=== PATIENT | male | born 1955 | race African-American/Black ===

== ENCOUNTER 2020-09-28 10:42 | Emergency (ER) | payer MEDICAID ==
[~2020-09-28] VITALS: Ht 172.7 cm; Wt 72.2 kg
[2020-09-28 11:00] VITALS: BP 155/97
--- NOTE | 2020-09-28 11:10 | PHYS DOC ---
Past Medical History Past Medical History: Alcoholism, Fibromyalgia, Glaucoma (left eye) (HENRIK GERBER SERVICE GIRL) General Adult EDM: Chief Complaint: ALCOHOL INTOXICATION HPI: HPI: Patient is a 65 year old male with history of glaucoma to the left eye and blin d, fibromyalgia, who presents to the ED today via EMS from residence in hotel at the [facility]. Per EMS report this patient is intoxicated and was found laying in the hallway at residence in. Nursing staff was able to reach patient's sister, the sister states patient was laying on the floor at residence in and the family decided to leave him there because they did not want to deal with him and he went back to [place]. 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 (HENRIK GERBER APRN) Review of Systems: Review of Systems: Constitutional: Denies fever or chills. [] Eyes: Denies change in visual acuity. [] HENT: Denies nasal congestion or sore throat. [] Respiratory: Denies cough or shortness of breath. [] Cardiovascular: Denies chest pain or edema. [] GI: Denies abdominal pain, nausea, vomiting, bloody stools or diarrhea. [] : Denies dysuria. [] Musculoskeletal: Denies back pain or joint pain. [] Integument: Denies rash. [] Neurologic: Denies headache, focal weakness or sensory changes. [] Psychiatric: Appears intoxicated (HENRIK GERBER SERVICE GIRL) Heart Score: C/O Chest Pain: N/A Risk Factors: Risk Factors: DM, Current or recent (<one month) smoker, HTN, HLP, family history of CAD, obesity. Risk Scores: Score 0 - 3: 2.5% MACE over next 6 weeks - Discharge Home Score 4 - 6: 20.3% MACE over next 6 weeks - Admit for Clinical Observation Score 7 - 10: 72.7% MACE over next 6 weeks - Early Invasive Strategies (HENRIK GERBER SERVICE GIRL) Allergies: Allergies: Allergies Coded Allergies Type Severity Reaction Last Updated Verified No Known Drug Allergies 09/28/20 No (HENRIK GERBER APRN) Physical Exam: PE: Constitutional: Well developed, well nourished, no acute distress, non-toxic appearance. [] HENT: Normocephalic, atraumatic, bilateral external ears normal, oropharynx moist, no oral exudates, nose normal. [] Eyes: Right eye PERRLA, EOMI, conjunctiva normal, no discharge. 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 [] Cardiovascular:Heart rate regular rhythm, no murmur [] Lungs & Thorax: Bilateral breath sounds clear to auscultation [] Abdomen: Bowel sounds normal, soft, no tenderness, no masses, no pulsatile masses. [] Skin: Warm, dry, no erythema, no rash. [] Back: No tenderness, no CVA tenderness. [] Extremities: No tenderness, no cyanosis, no clubbing, ROM intact, no edema. [] Neurologic: Alert and oriented X 3, normal motor function, normal sensory function, no focal deficits noted. Cranial nerves II through XII intact Psychologic: Appears intoxicated (HENRIK GERBER APRN) EKG: EKG: [] (HENRIK GERBER APRN) Radiology/Procedures: Radiology/Procedures: [] (HENRIK GERBER APRN) Course & Med Decision Making: Course & Med Decision Making Pertinent Labs and Imaging studies reviewed. (See chart for details) This is a 65-year-old male patient presented to the ED today to be evaluated. Patient was found laying down on the floor intoxicated at residence in. Patient's sister was called, she states patient was intoxicated and laying on the floor. They did not want to deal with him so they left him laying on the floor and went back to [place] with the rest of the family. [facility] team came and talked to patient Family came and picked him up (HENRIK GERBER SERVICE GIRL) Course & Med Decision Making Pt pleasant in ed with steady gait and [facility]. Has no signs of head/neck or m idline back trauma. Is making jokes and requests to be discharged. (TONIO FOSTER DO) Aram Disclaimer: Aram Disclaimer: This electronic medical record was generated, in whole or in part, using a voice recognition dictation system. (HENRIK GERBER APRN) Departure Departure Impression: Primary Impression: Alcohol intoxication Qualified Codes: F10.929 - Alcohol use, unspecified with intoxication, unspecified Disposition: 01 HOME / SELF CARE / HOMELESS Condition: STABLE HENRIK GERBER APRN Sep 28, 2020 11:10 TONIO FOSTER DO Sep 28, 2020 12:19
== END 2020-09-28 12:24 | disposition home or self-care (01) ==
LOC: ER 10:42
DX: F10.129 Alcohol abuse with intoxication, unspecified (principal); Y90.9 Presence of alcohol in blood, level not specified
CPT/HCPCS: 99284